=== PATIENT | male | born 2000 | race Caucasian/White ===

== ENCOUNTER 2018-07-06 17:34 | Emergency (ER) | payer OTHER | END 2018-07-06 19:17 | disposition home or self-care (01) | LOC: FTE 17:34 | DX: M54.2 Cervicalgia (principal); J45.909 Unspecified asthma, uncomplicated | CPT/HCPCS: 99282; Z7502 ==

== ENCOUNTER 2018-12-27 12:02 | Emergency (ER) | payer OTHER ==
[2018-12-27] MEDS: FLUORESCEIN STRIP LEFT EYE (14:37)
== END 2018-12-27 15:29 | disposition home or self-care (01) ==
LOC: FTE 12:02
DX: H10.32 Unspecified acute conjunctivitis, left eye (principal); J45.909 Unspecified asthma, uncomplicated
CPT/HCPCS: 99283; Z7502